=== PATIENT | male | born 1985 ===

== ENCOUNTER 2016-11-22 09:46 | Emergency (ER) | payer MEDICAID ==
[2016-11-22 09:51] VITALS: BP 122/74; PULSE 122; TEMP 97
[2016-11-22 09:57] VITALS: O2SAT 98
[2016-11-22] MEDS ORDERED: Sodium Chloride 0.9% 1,000 ML IV STA (10:12)
[2016-11-22] MEDS ORDERED: Ciprofloxacin 400mg/200ml D5W 400 MG/200 ML BAG IV STA (10:13)
[2016-11-22] MEDS ORDERED: metroNIDAZOLE 500mg/100ml NS 100 ML IV STA (10:13)
--- NOTE | 2016-11-22 10:35 | ED PDOC ---
HPI: Abdomen Time Seen by Provider: 11/22/16 10:03 Chief Complaint (Nursing): Abdominal Pain Chief Complaint (Provider): Abdominal Pain History Per: Patient History/Exam Limitations: no limitations Onset/Duration Of Symptoms: Days Current Symptoms Are (Timing): Still Present Severity: Moderate Location Of Pain/Discomfort: RLQ, LLQ Quality Of Discomfort: "Pain" Associated Symptoms: Nausea, Constipation. denies: Fever, Vomiting, Diarrhea, Back Pain Exacerbating Factors: None Alleviating Factors: None Additional Complaint(s): Patient is a 31 year old male who presents to ED for abdominal pain unresolved with antibiotic for over 1 week. Patient was evaluated in [facility] on , started on Flagyl and Cipro but states no improvement. Notes he has not taken Tylenol or Motrin for the pain. Denies vomiting, urinary changes or testicular pain. Reports mild nausea and difficulty having a bowel movement. No chest pain, dyspnea, fever, cough. No dysuria. Past Medical History Reviewed: Historical Data, Nursing Documentation, Vital Signs Vital Signs: Last Vital Signs Temp 97 F L 11/22/16 09:51 Pulse 122 H 11/22/16 09:51 Resp BP 122/74 11/22/16 09:51 Pulse Ox 98 11/22/16 12:17 - Medical History PMH: Diverticulitis - Surgical History Surgical History: Appendectomy - Family History Family History: States: Unknown Family Hx - Home Medications Home Medications: Ambulatory Orders Medication Instructions Recorded Ciprofloxacin HCl [Cipro] 500 mg PO BID #14 tab 11/19/16 Naproxen 500 mg PO BID PRN #14 tab 11/19/16 metroNIDAZOLE [Flagyl] 500 mg PO TID #21 tab 11/19/16 Ibuprofen [Motrin] 600 mg PO TID 7 Days 11/22/16 - Allergies Allergies/Adverse Reactions: Allergies Allergy/AdvReac Type Severity Reaction Status Date / Time No Known Allergies Allergy Verified 11/22/16 09:54 Review of Systems ROS Statement: Except As Marked, All Systems Reviewed And Found Negative Constitutional: Negative for: Fever, Chills Cardiovascular: Negative for: Chest Pain Respiratory: Negative for: Shortness of Breath Gastrointestinal: Positive for: Nausea, Abdominal Pain, Constipation. Negative for: Vomiting, Diarrhea Genitourinary Male: Negative for: Dysuria, Hematuria, Scrotal Pain Musculoskeletal: Negative for: Back Pain Skin: Negative for: Rash Neurological: Negative for: Weakness, Numbness Physical Exam - Reviewed Nursing Documentation Reviewed: Yes Vital Signs Reviewed: Yes - Physical Exam Appears: Positive for: Non-toxic, No Acute Distress Skin: Positive for: Normal Color, Warm. Negative for: Rash Eye Exam: Positive for: Normal appearance Neck: Positive for: Normal, Painless ROM Cardiovascular/Chest: Positive for: Regular Rate, Rhythm. Negative for: Murmur Respiratory: Positive for: Normal Breath Sounds. Negative for: Respiratory Distress Gastrointestinal/Abdominal: Positive for: Soft, Tenderness (mild diffuse lower abdomen). Negative for: Distended, Guarding, Rebound Back: Positive for: Normal Inspection. Negative for: L CVA Tenderness, R CVA Tenderness Extremity: Positive for: Normal ROM Neurologic/Psych: Positive for: Alert, Oriented - Laboratory Results Result Diagrams: 11/22/16 10:40 11/22/16 10:40 Interpretation Of Abn Labs: no acute - ECG O2 Sat by Pulse Oximetry: 98 (RA) Pulse Ox Interpretation: Normal - Radiology X-Ray: Read By Radiologist X-Ray Interpretation: No Acute Disease - Progress ED Course And Treament: 1218: Stable. AAOx3. Pain free. Tolerated PO. Continue cipro and flagyl rx at home. Motrin for pain control. Pt. to fu with gi. CT from 1 week ago shows mural thickening and no obvious diverticulitis. Getting tx for it regardless. Medical Decision Making Medical Decision Making: Time: 1005 Initial impression: Abdominal pain Initial plan: -- VBG -- CMP -- Urine dip -- CBC -- Obs Series -- Cipro, Flagyl, NSF, Toradol and Zofran -- Blood culture Scribe Attestation: Documented by Abi Bates acting as a scribe for Tyler Rod MD MD Scribe Attestation: All medical record entries made by the Scribe were at my direction and personally dictated by me. I have reviewed the chart and agree that the record accurately reflects my personal performance of the history, physical exam, medical decision making, and the department course for this patient. I have also personally directed, reviewed, and agree with the discharge instructions and disposition. Disposition - Clinical Impression Clinical Impression: Diverticulitis - Patient ED Disposition Is Patient to be Admitted: No Counseled Patient/Family Regarding: Studies Performed, Diagnosis, Need For Followup, Rx Given - Disposition Referrals: [facility] [Outside] - 11/24/16 Regan Rivera MD, PhD [Staff Provider] - 11/24/16 Disposition: Routine/Home Disposition Time: 12:21 Condition: STABLE Additional Instructions: Return if not better in 3 days. Prescriptions: Ibuprofen [Motrin] 600 mg PO TID 7 Days Instructions: Diverticulitis (ED) Forms: [employer] (Bulgarian)
[2016-11-22] MEDS ORDERED: Ciprofloxacin 400mg/200ml D5W 400 MG/200 ML BAG IVPB ONE (10:36)
[2016-11-22 11:12] LABS: BASO % 0.6 % (0.0-2.0); EOS # 0.1 K/uL (0.0-0.7); EOS % 1.3 % (0.0-4.0); LYMPH % 11.8 % (20.0-40.0); MEAN CORPUSCULAR HEMOGLOBIN 32.1 pg (27.0-31.0); MEAN CORPUSCULAR HGB CONC 33.4 g/dL (33.0-37.0); MEAN PLATELET VOLUME 8.2 fl (7.2-11.7); MONO # 0.5 K/uL (0.0-0.8); MONO % 6.1 % (0.0-10.0); NEUT # 6.5 K/uL (1.8-7.0); NEUT % 80.2 % (50.0-75.0); NRBC % 0.1 % (0.0-0.0); RED CELL DISTRIBUTION WIDTH 13.2 % (11.5-14.5); WHITE BLOOD COUNT 8.1 K/uL (4.8-10.8)
[2016-11-22 11:17] LABS: VENOUS BLOOD GAS BASE EXCESS 2.8 mmol/L (0.0-2.0); VENOUS BLOOD GAS PCO2 52 mmHg (40-60); VENOUS BLOOD PH 7.36 (7.32-7.43)
--- NOTE | 2016-11-22 11:20 | RAD ---
PROCEDURE: Radiographs of the chest and abdomen (obstructive series) HISTORY: abd pain COMPARISON: No prior. TECHNIQUE: AP radiograph of the chest, with upright and supine radiographs of the abdomen. FINDINGS: CHEST: Lungs: Clear. Cardiovascular: Normal size heart. No pulmonary vascular congestion. Pleura: No pleural fluid. No pneumothorax. Other findings: None. ABDOMEN AND PELVIS: Bowel: Unremarkable bowel gas pattern. No evidence of mechanical obstruction. Free air: None. Bones: Unremarkable. Other findings: None. IMPRESSION: Unremarkable radiographs of chest and abdomen. No evidence of mechanical bowel obstruction.
[2016-11-22 11:22] LABS: ALB/GLOB RATIO 1.3 (1.0-2.1); ALKALINE PHOSPHATASE 57 U/L (38-126); ALT/SGPT 20 U/L (21-72); AST/SGOT 21 U/L (17-59); BILIRUBIN,TOTAL 0.3 mg/dl (0.2-1.3); BLOOD UREA NITROGEN 11 mg/dl (9-20); CALCIUM 9.5 mg/dL (8.4-10.2); CARBON DIOXIDE 25 mmol/L (22-30); CHLORIDE 104 mmol/L (98-107); GFR AFRICAN-AMERICAN > 60; GLUCOSE,RANDOM 102 mg/dL (75-110); SODIUM 142 mmol/l (132-148); TOTAL PROTEIN 7.9 G/DL (6.3-8.2)
[2016-11-22] MEDS ORDERED: metroNIDAZOLE 500mg/100ml NS 100 ML IVPB ONE (12:20)
== END 2016-11-22 13:59 | disposition home or self-care (01) ==
LOC: H.ER 09:46
DX: K57.92 Diverticulitis of intestine, part unspecified, without perforation or abscess without bleeding (principal); R11.0 Nausea; R10.9 Unspecified abdominal pain

== ENCOUNTER 2018-06-20 13:53 | Emergency (ER) | payer MEDICAID ==
[2018-06-20 14:25] VITALS: TEMP 98; O2SAT 100
[2018-06-20] MEDS ORDERED: Sodium Chloride 0.9% 1,000 ML IV STA (15:18)
[2018-06-20 15:31] LABS: EOS # 0.2 K/uL (0.0-0.7); EOS % 4.2 % (0.0-4.0); LYMPH # 1.9 K/uL (1.0-4.3); LYMPH % 38.4 % (20.0-40.0); MEAN CELL VOLUME 97.2 fl (80.0-94.0); MEAN CORPUSCULAR HEMOGLOBIN 32.6 pg (27.0-31.0); MEAN CORPUSCULAR HGB CONC 33.6 g/dL (33.0-37.0); MEAN PLATELET VOLUME 8.6 fl (7.2-11.7); MONO # 0.5 K/uL (0.0-0.8); MONO % 9.5 % (0.0-10.0); NEUT # 2.3 K/uL (1.8-7.0); NEUT % 46.9 % (50.0-75.0); NRBC % 0.1 % (0.0-0.0); RBC 4.59 Mil/uL (4.40-5.90); RED CELL DISTRIBUTION WIDTH 13.4 % (11.5-14.5); WHITE BLOOD COUNT 4.9 K/uL (4.8-10.8)
[2018-06-20 15:42] LABS: BLOOD UREA NITROGEN 13 mg/dl (9-20); CALCIUM 9.3 mg/dL (8.4-10.2); GFR NON-AFRICAN AMERICAN > 60
[2018-06-20 15:53] LABS: ALB/GLOB RATIO 1.3 (1.0-2.1); ALBUMIN 4.4 g/dL (3.5-5.0); ALT/SGPT < 6 U/L (21-72); AST/SGOT 28 U/L (17-59)
--- NOTE | 2018-06-20 17:22 | RAD ---
Date of service: 06/20/2018 HISTORY: abdominal pain, history of diverticulitis COMPARISON: None available. FINDINGS: BOWEL: Normal. No obstruction. No free air. BONES: Normal. OTHER FINDINGS: None. IMPRESSION: No significant or acute findings to account for/ related to the clinical presentation.
--- NOTE | 2018-06-20 17:23 | ED PDOC ---
HPI: Abdomen Time Seen by Provider: 06/20/18 13:56 Chief Complaint (Nursing): Abdominal Pain Chief Complaint (Provider): Diffuse abdominal pain, nausea History Per: Patient History/Exam Limitations: no limitations Onset/Duration Of Symptoms: Days (1 week ) Outside of [place] travel?: No Location Of Pain/Discomfort: Diffuse Additional Complaint(s): 33 yo male with history of bowel resection for diverticulitis in 2016 presents for evaluation of diffuse abdominal pain. No fever/chills. Pt reports pain for 1 week and similar to previous episode in 2017. PT states he does not have GI doctor at this time. No medications for pain or fever. Pt also reports some nausea. Past Medical History Reviewed: Historical Data, Nursing Documentation, Vital Signs Vital Signs: Last Vital Signs Temp 98 F 06/20/18 14:24 Pulse 74 06/20/18 14:24 Resp 16 06/20/18 14:24 BP 119/64 06/20/18 14:24 Pulse Ox 100 06/20/18 14:24 - Medical History PMH: No Chronic Diseases, Diverticulitis - Surgical History Surgical History: Appendectomy - Family History Family History: States: Unknown Family Hx - Home Medications Home Medications: Ambulatory Orders Medication Instructions Recorded Ciprofloxacin [Cipro] 500 mg PO BID #30 tab 06/20/18 Ondansetron ODT [Zofran ODT] 4 mg PO QID #20 odt 06/20/18 metroNIDAZOLE [Flagyl] 500 mg PO TID #30 tab 06/20/18 traMADol [Ultram] 50 mg PO Q6H PRN #15 tab 06/20/18 - Allergies Allergies/Adverse Reactions: Allergies Allergy/AdvReac Type Severity Reaction Status Date / Time No Known Allergies Allergy Verified 11/22/16 09:54 Review of Systems ROS Statement: Except As Marked, All Systems Reviewed And Found Negative Constitutional: Negative for: Fever, Chills Gastrointestinal: Positive for: Nausea, Abdominal Pain. Negative for: Vomiting, Diarrhea Genitourinary Male: Negative for: Dysuria, Frequency, Hematuria, Penile Discharge Skin: Negative for: Rash, Lesions, Jaundice Physical Exam - Reviewed Nursing Documentation Reviewed: Yes Vital Signs Reviewed: Yes - Physical Exam Appears: Positive for: Well, Non-toxic, No Acute Distress Head Exam: Positive for: ATRAUMATIC, NORMAL INSPECTION, NORMOCEPHALIC Skin: Positive for: Normal Color, Warm, DRY Eye Exam: Positive for: Normal appearance ENT: Positive for: Normal ENT Inspection Neck: Positive for: Normal, Painless ROM Cardiovascular/Chest: Positive for: Regular Rate, Rhythm Respiratory: Positive for: Normal Breath Sounds. Negative for: Accessory Muscle Use, Respiratory Distress Gastrointestinal/Abdominal: Positive for: Soft, Tenderness (Diffuse tenderness ). Negative for: Normal Exam Back: Positive for: Normal Inspection Extremity: Positive for: Normal ROM Neurologic/Psych: Positive for: Alert, Oriented - Laboratory Results Result Diagrams: 06/20/18 15:00 06/20/18 15:00 - ECG O2 Sat by Pulse Oximetry: 100 Pulse Ox Interpretation: Normal Medical Decision Making Medical Decision Making: Pt does not want medications in ER for pain. Labs normal. No free air on XR. Discussed antibiotics, follow-up with GI and return for worsening symptoms. Disposition - Clinical Impression Clinical Impression: Abdominal pain - Patient ED Disposition Is Patient to be Admitted: No Counseled Patient/Family Regarding: Diagnosis, Need For Followup, Rx Given - Disposition Referrals: Regan Rivera MD, PhD [Staff Provider] - Disposition: Routine/Home Disposition Time: 17:28 Condition: GOOD Prescriptions: Ciprofloxacin [Cipro] 500 mg PO BID #30 tab metroNIDAZOLE [Flagyl] 500 mg PO TID #30 tab Ondansetron ODT [Zofran ODT] 4 mg PO QID #20 odt traMADol [Ultram] 50 mg PO Q6H PRN #15 tab PRN Reason: Pain Instructions: Acute Abdomen (Belly Pain), Adult (DC)
[2018-06-20 17:46] VITALS: BP 124/86; PULSE 77; RESP 19
== END 2018-06-20 17:38 | disposition home or self-care (01) ==
LOC: H.ER 13:53
DX: R10.9 Unspecified abdominal pain (principal)
CPT/HCPCS: 74022; 80053; 83605; 85025; 87040; 99283; J7030